=== PATIENT | female | born 1970 | race Caucasian/White ===

== ENCOUNTER 2023-01-13 14:53 | Emergency (ER) | payer SELFPAY ==
[2023-01-13 16:41] LABS: HBSAg Index 0.21 S/CO (0-0.99); HIV (1/2) Antibody/Antigen Non-Reactive (NonReactive); HIV 1/2 INDEX 0.35 S/CO (<1.00); Hep B Surf Ag Non-Reactive S/CO (NonReactive); Hep C IgG Ab Non-Reactive S/CO (NonReactive); Hep C Index 0.05 S/CO (0-0.79)
== END 2023-01-13 16:00 | disposition home or self-care (01) ==
LOC: ERS 14:53
DX: Z77.21 Contact with and (suspected) exposure to potentially hazardous body fluids (principal); G40.909 Epilepsy, unspecified, not intractable, without status epilepticus; Z79.899 Other long term (current) drug therapy
CPT/HCPCS: 36415; 99283